=== PATIENT | male | born 1965 | race Caucasian/White ===

== ENCOUNTER 2017-05-30 22:51 | Inpatient (IN) | payer MEDICAID ==
[~2017-05-30] VITALS: Ht 160 cm; Wt 71.2 kg
[2017-05-30] MEDS ORDERED: METOCLOPRAMIDE HCL 10MG/2ML VIAL IV STA (23:53)
[2017-05-30] MEDS ORDERED: ONDANSETRON HCL 4MG/2ML VIAL IV STA (23:53)
[2017-05-30] MEDS ORDERED: FAMOTIDINE 20MG/2ML VIAL IV STA (23:53)
[2017-05-30] MEDS ORDERED: MAGNESIUM/ALUMINUM HYDROXIDE/SIMETHICONE 30ML UDC PO STA (23:53)
[2017-05-30] MEDS ORDERED: SODIUM CHLORIDE 0.9% 1,000 ML IV ONE (23:53)
[2017-05-31 00:29] LABS: BASOPHILS % 0.8 % (0.0-2.0); EOSINOPHILS % 1.4 % (0.0-5.0); HEMATOCRIT. 40.6 % (42.0-52.0); HEMOGLOBIN. 13.8 g/dL (14.0-18.0); LYMPHOCYTES % 25.1 % (20.0-50.0); MEAN CORPUSCULAR HEMOGLOBIN 32.3 pg (28.0-32.0); MEAN PLATELET VOLUME 9.8 fl (7.4-10.4); MONOCYTES % 13.1 % (2.0-8.0); NEUTROPHILS % 59.6 % (40.0-76.0); PLATELET 132 x1000/uL (130-400); RED BLOOD CELL COUNT 4.27 mill/uL (4.7-6.1); RED CELL DISTRIBUTION WIDTH 12.7 % (11.6-14.6)
[2017-05-31 00:34] LABS: INR 1.1; PROTHROMBIN TIME 11.4 sec (9.4-11.6)
[2017-05-31 00:39] LABS: CHLORIDE 100 mEq/L (98-107); ETHANOL BLOOD < 10 mg/dL
[2017-05-31 00:44] LABS: TROPONIN I < 0.02 ng/mL (0.00-0.04)
[2017-05-31 02:01] LABS: CLARITY URINE CLEAR (CLEAR); COLOR URINE YELLOW (YELLOW); KETONES URINE NEGATIVE (NEGATIVE); LEUKOCYTE ESTERASE URINE NEGATIVE (NEGATIVE); NITRITE URINE NEGATIVE (NEGATIVE); OCCULT BLOOD URINE NEGATIVE (NEGATIVE); PROTEIN URINE NEGATIVE (NEGATIVE); SPECIFIC GRAVITY URINE 1.032 (1.005-1.030); UROBILINOGEN URINE 0.2 E.U./dL (0.2-1.0)
[2017-05-31 02:11] LABS: *AMPHETAMINES SCREEN URINE NEGATIVE (NEGATIVE); *BARBITURATES SCREEN URINE NEGATIVE (NEGATIVE); *BENZODIAZEPINES SCREEN URINE NEGATIVE (NEGATIVE); *COCAINE SCREEN URINE NEGATIVE (NEGATIVE); CANNABINOID URINE SCREEN NEGATIVE (NEGATIVE); METHADONE URINE SCREEN NEGATIVE (NEGATIVE); OPIATES URINE SCREEN NEGATIVE (NEGATIVE); PHENCYCLIDINE URINE SCREEN NEGATIVE (NEGATIVE)
[2017-05-31] MEDS ORDERED: SODIUM CHLORIDE 0.9% 1,000 ML IV NR (02:45)
[2017-05-31] MEDS ORDERED: GABAPENTIN 400MG CAPSULE PO NR (03:00)
[2017-05-31] MEDS ORDERED: INSULIN REGULAR (HUMULIN R) 300UNITS/3ML SUBCUT NR (03:45)
[2017-05-31] MEDS ORDERED: PIPERACILLIN/TAZOBACTAM 3.375GM/50ML PREMIX IV ONE (05:00)
[2017-05-31] MEDS ORDERED: PIPERACILLIN/TAZ 3.375G PREMIX 50 ML IV NR (05:00)
[2017-05-31] MEDS ORDERED: NITROGLYCERIN 0.4MG TABLET SL SL PRN (07:45)
[2017-05-31] MEDS ORDERED: DIPHENHYDRAMINE 50MG/ML VIAL IV PRN (07:45)
[2017-05-31] MEDS ORDERED: ONDANSETRON HCL 4MG/2ML VIAL IV PRN (07:45)
[2017-05-31] MEDS ORDERED: CLONIDINE 0.1MG TABLET PO PRN (07:45)
[2017-05-31] MEDS ORDERED: GUAIFENESIN 200MG/10ML SUGAR FREE UDC PO PRN (07:45)
[2017-05-31] MEDS ORDERED: MAGNESIUM/ALUMINUM HYDROXIDE/SIMETHICONE 30ML UDC PO PRN (07:45)
[2017-05-31] MEDS ORDERED: DEXTROSE 50% WATER 50ML SYRINGE IV PRN (07:45)
[2017-05-31] MEDS ORDERED: NA PHOS,M-B/NA PHOS,DI-BA ENEMA 118ML PR PRN (09:00)
[2017-05-31] MEDS ORDERED: DOCUSATE SODIUM 100MG CAPSULE PO PRN (09:00)
[2017-05-31] MEDS: BLOOD SUGAR DIAGNOSTIC STRIP TEST SCH ×4 (09:00→20:44)
[2017-05-31] MEDS ORDERED: CEFTRIAXONE 1 G PREMIX 50 ML IV SCH ×2 (09:00→11:00)
[2017-05-31 09:15] VITALS: BP 175/102
[2017-05-31] MEDS ORDERED: IPRATROPIUM/ALBUTEROL 0.5-3(2.5)MG/3ML NEB INH PRN (09:30)
[2017-05-31] MEDS ORDERED: INSULIN GLARGINE UD 100 UNITS/ML SYR SUBCUT SCH (10:00)
[2017-05-31 10:15] VITALS: BP 124/88
[2017-05-31] MEDS: FAMOTIDINE 20MG/2ML VIAL IV SCH ×2 (11:39→21:39)
[2017-05-31] MEDS: SODIUM CHLORIDE 0.9% 1,000 ML IV SCH ×3 (11:40→22:03)
[2017-05-31] MEDS: ENOXAPARIN 40MG/0.4ML SYR SUBCUT SCH (11:42)
[2017-05-31] MEDS: INSULIN LISPRO 100 UNITS/ML SUBCUT SCH ×3 (11:56→20:57)
[2017-05-31 12:00] VITALS: BP_SYST 130; BP_SYST 157; BP_DIAS 100; BP_DIAS 91
[2017-05-31] MEDS ORDERED: LEVOFLOXACIN 500MG PREMIX 100 ML IV SCH (12:00)
[2017-05-31] MEDS: METOCLOPRAMIDE 10MG/10 ML UDC PO SCH ×2 (13:10→17:10)
[2017-05-31] MEDS: SUCRALFATE 1 G/10 ML UDC PO SCH ×3 (13:11→20:55)
[2017-05-31] MEDS ORDERED: PNEUMOCOCCAL 23-VAL P-SAC VAC 0.5 ML IM ONE (15:30)
[2017-05-31 16:00] VITALS: BP 138/93
[2017-05-31] MEDS ORDERED: GABA-290 PO (16:15)
[2017-05-31] MEDS ORDERED: ATOR20TA65 PO (16:18)
[2017-05-31] MEDS ORDERED: LISI-186 PO (16:18)
[2017-05-31] MEDS ORDERED: METF10002 PO (16:18)
[2017-05-31] MEDS ORDERED: INSLIS SUBCUT (16:22)
[2017-05-31] MEDS ORDERED: INSU100I24 SQ (16:26)
[2017-05-31] MEDS ORDERED: AMLO5TAB88 PO (16:26)
[2017-05-31] MEDS ORDERED: HYDR12.54 PO (16:26)
[2017-05-31] MEDS ORDERED: CHOL20004 PO (16:28)
[2017-05-31 18:18] LABS: CREATINE KINASE 57 IU/L (39-308); CREATINE KINASE MB FRACTION 1.4 ng/mL (0.5-3.6); TROPONIN I < 0.02 ng/mL (0.00-0.04)
[2017-05-31] MEDS: KETOROLAC 15MG/ML VIAL IV PRN (19:48)
[2017-05-31 20:00] VITALS: BP 140/89
[2017-05-31] MEDS ORDERED: ZOLPIDEM TARTRATE 5MG TABLET PO PRN (21:00)
[2017-06-01] VITALS: BP 138/86
[2017-06-01 01:49] LABS: CREATINE KINASE 50 IU/L (39-308); CREATINE KINASE MB FRACTION 1.2 ng/mL (0.5-3.6); TROPONIN I < 0.02 ng/mL (0.00-0.04)
[2017-06-01 04:00] VITALS: BP 160/88
[2017-06-01] MEDS: BLOOD SUGAR DIAGNOSTIC STRIP TEST SCH (05:53)
[2017-06-01] MEDS: KETOROLAC 15MG/ML VIAL IV PRN (05:59)
[2017-06-01] MEDS: METOCLOPRAMIDE 10MG/10 ML UDC PO SCH (06:01)
[2017-06-01] MEDS: INSULIN LISPRO 100 UNITS/ML SUBCUT SCH (06:02)
[2017-06-01] MEDS: SUCRALFATE 1 G/10 ML UDC PO SCH (06:02)
[2017-06-01 07:40] VITALS: BP 138/78
[2017-06-01] MEDS: ENOXAPARIN 40MG/0.4ML SYR SUBCUT SCH (09:37)
[2017-06-01] MEDS: FAMOTIDINE 20MG/2ML VIAL IV SCH (09:37)
[2017-06-01] MEDS ORDERED: INSULIN GLARGINE UD 100 UNITS/ML SYR SUBCUT SCH (10:00)
[2017-06-01 10:29] VITALS: BP 138/78
== END 2017-06-01 10:59 | disposition home or self-care (01) | DRG 241 ==
LOC: ER 22:51 → 8WST 05-31 04:51 → EDBEDREQ 05-31 05:23 → ENRESERV 05-31 08:23
PROVIDERS: ADMIT Internal Medicine; ATTEND Internal Medicine
DX: K29.70 Gastritis, unspecified, without bleeding (principal); K85.90 Acute pancreatitis without necrosis or infection, unspecified; K31.84 Gastroparesis; E11.65 Type 2 diabetes mellitus with hyperglycemia; E11.43 Type 2 diabetes mellitus with diabetic autonomic (poly)neuropathy; E44.1 Mild protein-calorie malnutrition; E87.1 Hypo-osmolality and hyponatremia; D63.8 Anemia in other chronic diseases classified elsewhere; I10 Essential (primary) hypertension; F17.210 Nicotine dependence, cigarettes, uncomplicated; Z79.4 Long term (current) use of insulin; Z79.899 Other long term (current) drug therapy; Z68.27 Body mass index [BMI] 27.0-27.9, adult
CPT/HCPCS: 36415; 71045; 74176; 76705; 80053; 80061; 80305; 81003; 82010; 82550; 82553; 82962; 83036; 83605; 83690; 83880; 84484; 85025; 85610; 90732; 93005; 93970; 96365; 96375; 99285; G0482; J0696; J1650; J1815; J1885; J1956; J2405; J2543; J2765; J3490; J7030; J7040; J8597

== ENCOUNTER 2018-03-15 01:07 | Emergency (ER) | payer MEDICAID ==
[~2018-03-15] VITALS: Ht 170.2 cm; Wt 72.6 kg
[~2018-03-15 01:07] MED LIST: AMLO5TAB88 PO; ATOR20TA65 PO; CHOL20004 PO; GABA-290 PO; HYDR12.54 PO; INSLIS SUBCUT; INSU100I24 SQ; LISI-186 PO; METF-416 PO
[2018-03-15] MEDS ORDERED: SODIUM CHLORIDE 0.9% 1,000 ML IV ONE (01:22)
[2018-03-15 02:21] LABS: CHLORIDE 86 mEq/L (98-107)
[2018-03-15 02:28] LABS: BETA HYDROXYBUTYRATE 0.4 mMol/L (0.0-0.3)
[2018-03-15 02:41] LABS: BASOPHILS % 0.8 % (0.0-2.0); EOSINOPHILS % 0.5 % (0.0-5.0); HEMATOCRIT. 44.7 % (42.0-52.0); HEMOGLOBIN. 14.9 g/dL (14.0-18.0); LYMPHOCYTES % 41.1 % (20.0-50.0); MEAN CORPUSCULAR HEMOGLOBIN 33.4 pg (28.0-32.0); MEAN CORPUSCULAR VOLUME 99.9 fL (80.0-94.0); MEAN PLATELET VOLUME 9.7 fl (7.4-10.4); MONOCYTES % 5.7 % (2.0-8.0); NEUTROPHILS % 51.9 % (40.0-76.0); PLATELET 138 x1000/uL (130-400); RED BLOOD CELL COUNT 4.47 mill/uL (4.7-6.1); RED CELL DISTRIBUTION WIDTH 12.7 % (11.6-14.6)
[2018-03-15] MEDS ORDERED: INSULIN LISPRO 100 UNITS/ML SUBCUT ONE (02:45)
[2018-03-15 02:52] LABS: ETHANOL BLOOD 395 mg/dL
[2018-03-15 04:28] VITALS: BP 128/75
[2018-03-15 06:38] LABS: *AMPHETAMINES SCREEN URINE NEGATIVE (NEGATIVE); *BARBITURATES SCREEN URINE NEGATIVE (NEGATIVE); *BENZODIAZEPINES SCREEN URINE NEGATIVE (NEGATIVE); *COCAINE SCREEN URINE NEGATIVE (NEGATIVE)
[2018-03-15 06:39] LABS: CANNABINOID URINE SCREEN NEGATIVE (NEGATIVE); CLARITY URINE CLEAR (CLEAR); COLOR URINE YELLOW (YELLOW); KETONES URINE NEGATIVE (NEGATIVE); LEUKOCYTE ESTERASE URINE NEGATIVE (NEGATIVE); METHADONE URINE SCREEN NEGATIVE (NEGATIVE); NITRITE URINE NEGATIVE (NEGATIVE); OCCULT BLOOD URINE 1+ (NEGATIVE); OPIATES URINE SCREEN NEGATIVE (NEGATIVE); PH URINE 5.5 (4.5-8.0); PHENCYCLIDINE URINE SCREEN NEGATIVE (NEGATIVE); PROTEIN URINE NEGATIVE (NEGATIVE); SPECIFIC GRAVITY URINE 1.022 (1.005-1.030); UROBILINOGEN URINE 0.2 E.U./dL (0.2-1.0)
== END 2018-03-15 04:31 | disposition home or self-care (01) ==
LOC: ER 01:07
DX: E11.65 Type 2 diabetes mellitus with hyperglycemia (principal); Z91.14 Patient's other noncompliance with medication regimen; F10.229 Alcohol dependence with intoxication, unspecified; Y90.8 Blood alcohol level of 240 mg/100 ml or more
CPT/HCPCS: 36415; 80053; 80305; 81003; 82010; 82140; 82962; 83690; 83735; 85025; 96360; 96361; 96372; 99283; G0482; J1815; J7030

== ENCOUNTER 2019-02-03 19:32 | Emergency (ER) | payer MEDICAID ==
[~2019-02-03] VITALS: Ht 170.2 cm; Wt 80.0 kg
[2019-02-03] MEDS ORDERED: SODIUM CHLORIDE 0.9% 500 ML IV ONE (20:45)
[2019-02-03 21:10] LABS: BASOPHILS % 0.5 % (0.0-2.0); CHLORIDE 106 mEq/L (98-107); EOSINOPHILS % 1.5 % (0.0-5.0); HEMATOCRIT. 34.6 % (42.0-52.0); HEMOGLOBIN. 12.1 g/dL (14.0-18.0); LYMPHOCYTES % 17.5 % (20.0-50.0); MEAN CORPUSCULAR HEMOGLOBIN 33.9 pg (28.0-32.0); MEAN CORPUSCULAR VOLUME 97.4 fL (80.0-94.0); MEAN PLATELET VOLUME 9.6 fl (7.4-10.4); MONOCYTES % 9.1 % (2.0-8.0); NEUTROPHILS % 71.4 % (40.0-76.0); PLATELET 146 x1000/uL (130-400); RED BLOOD CELL COUNT 3.56 mill/uL (4.7-6.1); RED CELL DISTRIBUTION WIDTH 12.6 % (11.6-14.6)
[2019-02-04] MEDS ORDERED: CLONIDINE 0.2MG TABLET PO ONE (00:15)
[2019-02-04] MEDS ORDERED: MORPHINE SULFATE 4 MG/ML CPJ (NOT FOR IM USE) IV ONE (00:15)
[2019-02-04 02:38] VITALS: BP 165/95
== END 2019-02-04 02:48 | disposition home or self-care (01) ==
LOC: ER 19:32
DX: R55 Syncope and collapse (principal); S20.211A Contusion of right front wall of thorax, initial encounter; W18.39XA Other fall on same level, initial encounter; Y93.89 Activity, other specified; Y92.89 Other specified places as the place of occurrence of the external cause; E11.9 Type 2 diabetes mellitus without complications; I10 Essential (primary) hypertension; E78.5 Hyperlipidemia, unspecified
CPT/HCPCS: 36415; 70450; 71045; 71100; 80053; 83880; 84484; 85025; 93005; 96374; 99284; J2270; J7040; Z7610

== ENCOUNTER → 2021-06-05 | Outpatient (CLI) | payer MEDICAID ==
[~2021-06-05] MED LIST changes: +ASPI-1497 MT; +ATOR40TA70 MT; +BUPIVACAINE HCL 0.5% (5MG/ML) 50ML ONE; +CEFAZOLIN SODIUM 1000MG/VIAL ONE; +CYAN50009 PO; +EPHEDRINE SULFATE 50MG/ML VIAL ONE; +ERTU5TAB PO; +FENTANYL CITRATE/PF 50MCG/ML 2ML VIAL ONE; +FLUO20CA39 MT; +FOLI-43 MT; +FURO40TA5 MT; +GABA800T97 MT; +GLYCOPYRROLATE 0.2 MG/ML 2ML VIAL ONE; +LABE100T5 MT; +LOSA100T32 MT; +METO5TAB86 MT; +MIDAZOLAM HCL 2 MG/2 ML VIAL ONE; +OMEP20CA14 MT; +PHENYLEPHRINE HCL 10 MG/ML 1ML (IV VIAL) IV ONE; +PROPOFOL 200MG/20ML VIAL IV ONE; +ROCURONIUM BROMIDE 10MG/ML VIAL 5ML IV ONE; +SKIN ADHESIVE 0.7 GM EA TOP ONE
== END | disposition home or self-care (01) ==
LOC: LAB 08:31
PROVIDERS: ATTEND Surgery
DX: Z01.812 Encounter for preprocedural laboratory examination (principal); Z20.822 Contact with and (suspected) exposure to COVID-19
CPT/HCPCS: 87426

== ENCOUNTER → 2021-06-06 | Day surgery (SDC) | payer MEDICAID ==
[~2021-06-06] VITALS: Ht 160 cm; Wt 86.2 kg
[~2021-06-06] MED LIST changes: -BUPIVACAINE HCL 0.5% (5MG/ML) 50ML ONE; -CEFAZOLIN SODIUM 1000MG/VIAL ONE; -EPHEDRINE SULFATE 50MG/ML VIAL ONE; +FENTANYL CITRATE/PF 50MCG/ML 2ML VIAL IV PRN; -FENTANYL CITRATE/PF 50MCG/ML 2ML VIAL ONE; -GLYCOPYRROLATE 0.2 MG/ML 2ML VIAL ONE; +HYDROCODONE/ACETAMINOPHEN 5/325MG TABLET PO PRN; +HYDROMORPHONE HCL/PF 2MG/ML CPJ IV PRN; +MEPERIDINE HCL/PF 25MG/ML CPJ IV PRN; -MIDAZOLAM HCL 2 MG/2 ML VIAL ONE; +ONDANSETRON HCL 4MG/2ML INJ IV PRN; -PHENYLEPHRINE HCL 10 MG/ML 1ML (IV VIAL) IV ONE; -PROPOFOL 200MG/20ML VIAL IV ONE; -ROCURONIUM BROMIDE 10MG/ML VIAL 5ML IV ONE; -SKIN ADHESIVE 0.7 GM EA TOP ONE; +SODIUM CHLORIDE 0.9% 1,000 ML IV SCH
[2021-06-06 13:38] VITALS: BP 165/94
== END | disposition home or self-care (01) ==
LOC: OR 08:54
PROVIDERS: ATTEND Surgery
DX: K80.10 Calculus of gallbladder with chronic cholecystitis without obstruction (principal); K74.60 Unspecified cirrhosis of liver; I11.0 Hypertensive heart disease with heart failure; I50.21 Acute systolic (congestive) heart failure; E11.9 Type 2 diabetes mellitus without complications; K21.9 Gastro-esophageal reflux disease without esophagitis; F32.9 Major depressive disorder, single episode, unspecified; E78.5 Hyperlipidemia, unspecified; D64.9 Anemia, unspecified; F17.210 Nicotine dependence, cigarettes, uncomplicated; Z79.82 Long term (current) use of aspirin; Z79.4 Long term (current) use of insulin; Z79.899 Other long term (current) drug therapy; Z98.890 Other specified postprocedural states; Z72.89 Other problems related to lifestyle
CPT/HCPCS: 47379; 47562; 82962; 88304; 88307; J0690; J2250; J2370; J2405; J2704; J3010; J3490

== ENCOUNTER 2022-12-07 08:41 | Emergency (ER) | payer MEDICAID, OTHER ==
[~2022-12-07] VITALS: Ht 167.6 cm; Wt 77.0 kg
[~2022-12-07 08:41] MED LIST changes: -ATOR20TA65 PO; -CHOL20004 PO; -FENTANYL CITRATE/PF 50MCG/ML 2ML VIAL IV PRN; -GABA-290 PO; -HYDR12.54 PO; -HYDROCODONE/ACETAMINOPHEN 5/325MG TABLET PO PRN; -HYDROMORPHONE HCL/PF 2MG/ML CPJ IV PRN; -LABE100T5 MT; +LABE100T9 MT; -LISI-186 PO; -LOSA100T32 MT; +LOSA100T33 MT; -MEPERIDINE HCL/PF 25MG/ML CPJ IV PRN; -ONDANSETRON HCL 4MG/2ML INJ IV PRN; -SODIUM CHLORIDE 0.9% 1,000 ML IV SCH
[2022-12-07 08:44] VITALS: BP 156/96; PULSE 88; RESP 16; TEMP 98.4; O2SAT 99
== END 2022-12-07 12:33 | disposition home or self-care (01) ==
LOC: ER 09:13
DX: T60.91XA Toxic effect of unspecified pesticide, accidental (unintentional), initial encounter (principal); E11.9 Type 2 diabetes mellitus without complications; I10 Essential (primary) hypertension; Z79.899 Other long term (current) drug therapy; X58.XXXA Exposure to other specified factors, initial encounter
CPT/HCPCS: 99283

== ENCOUNTER 2023-02-07 13:47 | Emergency (ER) | payer MEDICAID ==
[~2023-02-07] VITALS: Ht 170.2 cm; Wt 77.0 kg
[~2023-02-07 13:47] MED LIST changes: -FURO40TA5 MT; -GABA800T97 MT; -LABE100T9 MT; -LOSA100T33 MT; +METO-396 PO
[2023-02-07 13:50] VITALS: BP 110/76; PULSE 80; RESP 18; TEMP 97.9; O2SAT 100
[2023-02-07] MEDS ORDERED: SODIUM CHLORIDE 0.9% 1,000 ML IV ONE (14:15)
[2023-02-07 15:08] LABS: BASOPHILS % 1.7 % (0.0-2.0); EOSINOPHILS % 2.8 % (0.0-5.0); HEMATOCRIT. 31.1 % (42.0-52.0); HEMOGLOBIN. 10.5 g/dL (14.0-18.0); LYMPHOCYTES % 17.6 % (20.0-50.0); MEAN CORPUSCULAR HEMOGLOBIN 29.9 pg (28.0-32.0); MEAN CORPUSCULAR HGB CONC 33.6 g/dL (31.0-37.0); MEAN CORPUSCULAR VOLUME 88.9 fL (80.0-94.0); MEAN PLATELET VOLUME 8.7 fl (7.4-10.4); MONOCYTES % 6.6 % (2.0-8.0); NEUTROPHILS % 71.3 % (40.0-76.0); PLATELET 185 x1000/uL (130-400); RED CELL DISTRIBUTION WIDTH 13.7 % (11.6-14.6); WHITE BLOOD COUNT 6.3 x1000/uL (4.5-11.0)
[2023-02-07 15:16] LABS: CHLORIDE 110 mEq/L (98-107); INDEX HEMOLYSI 1 (1-3); INDEX ICTERIC 1 (1-4); INDEX LIPEMIC 1 (1-3); POTASSIUM 4.9 mEq/L (3.5-5.1); SODIUM 140 mEq/L (136-145)
[2023-02-07 15:29] LABS: ALANINE AMINOTRANSFERASE 81 IU/L (13-61); ALBUMIN 3.2 g/dL (3.4-5.0); ASPARTATE AMINOTRANSFERASE 50 IU/L (15-37); BILIRUBIN TOTAL 0.7 mg/dL (0.1-1.0); CALCIUM 8.8 mg/dL (8.5-10.1); CREATININE 1.8 mg/dL (0.6-1.3); GLUCOSE 191 mg/dL (70-105); PROTEIN TOTAL 7.6 g/dL (6.0-8.3); TROPONIN I HIGH SENSITIVITY 17 ng/L (<78); UREA NITROGEN BLOOD 46 mg/dL (7-21)
[2023-02-07 17:57] LABS: CARBON DIOXIDE 22 mEq/L (21-32)
== END 2023-02-07 18:37 | disposition home or self-care (01) ==
LOC: ER 13:47
DX: R55 Syncope and collapse (principal); E11.9 Type 2 diabetes mellitus without complications; I10 Essential (primary) hypertension; E78.00 Pure hypercholesterolemia, unspecified; I95.9 Hypotension, unspecified
CPT/HCPCS: 80053; 82962; 83690; 85025; 84484; 36415; 71045; 70450; 93005; 96360; 99291; J7030; Z7610